=== PATIENT | female | born 1950 | race African-American/Black ===

== ENCOUNTER 2017-01-27 06:53 | Emergency (ER) | payer MEDICARE, OTHER ==
[~2017-01-27] VITALS: Ht 157.5 cm; Wt 90.0 kg
[~2017-01-27 06:53] MED LIST: ALBU05; DIGO125T82; FURO-152; WARF1TAB46
[2017-01-27] MEDS ORDERED: IPRATROPIUM/ALBUTEROL 0.5-3(2.5)MG/3ML NEB HHN ONE (07:45)
[2017-01-27] MEDS ORDERED: FUROSEMIDE 20MG/2ML VIAL IVP ONE (07:45)
[2017-01-27 08:12] LABS: BASOPHILS % 0.6 % (0.0-2.0); EOSINOPHILS % 2.2 % (0.0-5.0); LYMPHOCYTES % 9.2 % (20.0-50.0); MEAN CORPUSCULAR HEMOGLOBIN 29.5 pg (28.0-32.0); MEAN CORPUSCULAR HGB CONC 32.5 g/dL (31.0-37.0); MEAN CORPUSCULAR VOLUME 90.7 fL (81.0-99.0); MEAN PLATELET VOLUME 10.3 fl (7.4-10.4); MONOCYTES % 8.2 % (2.0-8.0); NEUTROPHILS % 79.8 % (40.0-76.0); PLATELET 152 x1000/uL (130-400); RED BLOOD CELL COUNT 4.74 mill/uL (4.2-5.4); RED CELL DISTRIBUTION WIDTH 14.9 % (11.6-14.6); WHITE BLOOD COUNT 9.3 x1000/uL (4.5-11.0)
[2017-01-27 08:18] LABS: PARTIAL THROMBOPLASTIN TIME 44.1 sec (24.0-34.0); PROTHROMBIN TIME 53.8 sec
[2017-01-27 08:22] LABS: ALANINE AMINOTRANSFERASE 20 IU/L (13-61); ALBUMIN 3.4 g/dL (3.4-5.0); ANION GAP 10; CALCIUM 8.8 mg/dL (8.5-10.1); CARBON DIOXIDE 31 mEq/L (21-32); CHLORIDE 102 mEq/L (98-107); INDEX HEMOLYSI 4 (1-3); INDEX ICTERIC 1 (1-4); INDEX LIPEMIC 1 (1-3); TROPONIN I < 0.02 ng/mL (0.00-0.04); UREA NITROGEN BLOOD 18 mg/dL (7-21); eGFR > 60 mL/min (>60)
[2017-01-27 08:30] LABS: NT PRO B-TYPE NATRIURETIC PEP 1209 pg/mL (5-125)
[2017-01-27 08:34] LABS: INR 5.1
[2017-01-27 08:36] LABS: DIGOXIN 1.1 ng/mL (0.9-2.0)
[2017-01-27] MEDS ORDERED: PREDNISOLONE 15 MG/5 ML ORAL SYRINGE PO ONE (08:45)
[2017-01-27 11:45] VITALS: BP 125/78
== END 2017-01-27 12:02 | disposition home or self-care (01) ==
LOC: ER 06:54
DX: J44.1 Chronic obstructive pulmonary disease with (acute) exacerbation (principal); R79.1 Abnormal coagulation profile; I11.0 Hypertensive heart disease with heart failure; I50.9 Heart failure, unspecified; J45.909 Unspecified asthma, uncomplicated; I48.91 Unspecified atrial fibrillation; Z79.01 Long term (current) use of anticoagulants; Z79.899 Other long term (current) drug therapy
CPT/HCPCS: 36415; 71010; 80053; 80162; 83880; 84484; 85025; 85610; 85730; 93005; 94640; 96374; 99285; J1940; J7620

== ENCOUNTER 2018-11-03 13:46 | Inpatient (IN) | payer MEDICARE ==
[~2018-11-03] VITALS: Ht 154.9 cm; Wt 113.9 kg
[~2018-11-03 13:46] MED LIST changes: -FURO-152; +FURO-152 PO
[2018-11-03] MEDS ORDERED: ALBUTEROL (0.083%) 2.5MG/3ML NEB HHN STA (14:52)
[2018-11-03] MEDS ORDERED: IPRATROPIUM BROMIDE (0.02%) 0.5MG/2.5ML NEB HHN STA (14:52)
[2018-11-03] MEDS ORDERED: METHYLPREDNISOLONE SOD SUCC 125 MG/2 ML VIAL IV STA (14:52)
[2018-11-03 15:17] LABS: BASOPHILS % 0.5 % (0.0-2.0); EOSINOPHILS % 0.7 % (0.0-5.0); HEMATOCRIT. 38.8 % (36.0-48.0); HEMOGLOBIN. 12.7 g/dL (12.0-16.0); LYMPHOCYTES % 7.3 % (20.0-50.0); MEAN CORPUSCULAR HEMOGLOBIN 30.3 pg (28.0-32.0); MEAN CORPUSCULAR VOLUME 92.5 fL (81.0-99.0); MEAN PLATELET VOLUME 9.8 fl (7.4-10.4); MONOCYTES % 7.1 % (2.0-8.0); NEUTROPHILS % 84.4 % (40.0-76.0); PLATELET 261 x1000/uL (130-400); RED BLOOD CELL COUNT 4.19 mill/uL (4.2-5.4); RED CELL DISTRIBUTION WIDTH 16.1 % (11.6-14.6)
[2018-11-03 15:22] LABS: CHLORIDE 105 mEq/L (98-107)
[2018-11-03] MEDS ORDERED: ALBUTEROL (0.5%) 2.5MG/0.5ML NEB HHN ONE (17:30)
[2018-11-04 10:15] VITALS: BP 141/95
[2018-11-04] MEDS ORDERED: WARF1TAB85 PO (11:45)
[2018-11-04] MEDS ORDERED: WARF10TA44 PO (11:45)
[2018-11-04 12:00] VITALS: BP 120/80
[2018-11-04 12:46] LABS: BG BASE EXCESS 3.8 mmol/L (-2.0-2.0); BG CARBOXYHEMOGLOBIN 0.7 % (0.5-1.5); BG DEOXYHEMOGLOBIN 3.5 % (0.0-5.0); BG FRACTION INSPIRED OXYGEN 36; BG HCO3 ACT 28.7 mmol/L (22.0-26.0); BG METHEMOGLOBIN 0.3 % (0.0-1.5); BG OXYGEN SATURATION 96.5 % (92.0-98.5); BG OXYHEMOGLOBIN 95.5 % (94.0-97.0); BG PCO2 44.6 mmHg (35.0-45.0); BG PH 7.427 (7.350-7.450); BG SAMPLE SITE RIGHT BRACHIAL; BG TOTAL HEMOGLOBIN 12.5 g/dL (12.0-18.0); BG VENT MODE NASAL CANNULA
[2018-11-04] MEDS: PREDNISONE 20MG TABLET PO SCH (12:57)
[2018-11-04] MEDS: IPRATROPIUM/ALBUTEROL 0.5-3(2.5)MG/3ML NEB HHN SCH ×2 (13:37→20:55)
[2018-11-04 16:00] VITALS: BP 110/71
[2018-11-04 16:23] LABS: HEMATOCRIT. 37.8 % (36.0-48.0); HEMOGLOBIN. 12.2 g/dL (12.0-16.0); MEAN CORPUSCULAR HEMOGLOBIN 29.8 pg (28.0-32.0); MEAN CORPUSCULAR VOLUME 92.5 fL (81.0-99.0); MEAN PLATELET VOLUME 9.4 fl (7.4-10.4); PLATELET 268 x1000/uL (130-400); RED BLOOD CELL COUNT 4.09 mill/uL (4.2-5.4); RED CELL DISTRIBUTION WIDTH 16.4 % (11.6-14.6)
[2018-11-04 16:32] LABS: PROTHROMBIN TIME 40.1 sec (9.1-11.1)
[2018-11-04 16:37] LABS: CHLORIDE 106 mEq/L (98-107)
[2018-11-04] MEDS: LEVOFLOXACIN 500MG TABLET PO SCH (16:59)
[2018-11-04] MEDS ORDERED: FUROSEMIDE 20MG/2ML VIAL IVP SCH (17:00)
[2018-11-04 17:03] LABS: PLATELET ESTIMATE NORMAL
[2018-11-04] MEDS ORDERED: DILT60TA35 PO (17:10)
[2018-11-04] MEDS ORDERED: CITA10TA16 MT (17:10)
[2018-11-04] MEDS ORDERED: FERR325T6 MT (17:10)
[2018-11-04] MEDS ORDERED: METO-539 MT (17:10)
[2018-11-04] MEDS ORDERED: MONT10TA21 MT (17:20)
[2018-11-04] MEDS ORDERED: OMEP20CA10 MT (17:20)
[2018-11-04] MEDS ORDERED: SOTA80TA MT (17:20)
[2018-11-04] MEDS ORDERED: FLUT1DIS6 INH (17:20)
[2018-11-04] MEDS ORDERED: POTA20TA82 MT (17:20)
[2018-11-04 17:29] LABS: INR 4.1
[2018-11-04] MEDS ORDERED: FURO-151 PO (17:42)
[2018-11-04] MEDS: POTASSIUM CHLORIDE 20MEQ TABLET SR PO SCH (18:41)
[2018-11-04] MEDS: MONTELUKAST SODIUM 10MG TABLET PO SCH (18:41)
[2018-11-04] MEDS: CITALOPRAM HYDROBROMIDE 20MG TABLET PO SCH (18:42)
[2018-11-04] MEDS: OMEPRAZOLE 20MG CAPSULE EXTENDED RELEASE PO SCH (18:42)
[2018-11-04] MEDS: FUROSEMIDE 40MG/4ML VIAL IV SCH (18:42)
[2018-11-04 20:00] VITALS: BP 129/87
[2018-11-04] MEDS: SOTALOL HCL 80MG TABLET PO SCH (20:50)
[2018-11-04] MEDS: BUDESONIDE 0.5MG/2ML NEB HHN SCH (20:55)
[2018-11-05] VITALS: BP 134/88
[2018-11-05] MEDS: IPRATROPIUM/ALBUTEROL 0.5-3(2.5)MG/3ML NEB HHN SCH ×3 (00:17→14:29)
[2018-11-05 04:00] VITALS: BP 119/77
[2018-11-05] MEDS: OMEPRAZOLE 20MG CAPSULE EXTENDED RELEASE PO SCH (06:26)
[2018-11-05] MEDS: FUROSEMIDE 40MG/4ML VIAL IV SCH ×2 (06:26→16:55)
[2018-11-05 06:43] LABS: PROTHROMBIN TIME 40.8 sec (9.1-11.1)
[2018-11-05 07:01] LABS: CHLORIDE 104 mEq/L (98-107)
[2018-11-05 07:05] LABS: HEMATOCRIT. 36.6 % (36.0-48.0); HEMOGLOBIN. 11.8 g/dL (12.0-16.0); MEAN CORPUSCULAR HEMOGLOBIN 29.8 pg (28.0-32.0); MEAN CORPUSCULAR VOLUME 92.2 fL (81.0-99.0); MEAN PLATELET VOLUME 9.7 fl (7.4-10.4); PLATELET 261 x1000/uL (130-400); RED BLOOD CELL COUNT 3.97 mill/uL (4.2-5.4); RED CELL DISTRIBUTION WIDTH 16.3 % (11.6-14.6)
[2018-11-05 07:15] LABS: INR 4.2
[2018-11-05] MEDS: BUDESONIDE 0.5MG/2ML NEB HHN SCH (08:59)
[2018-11-05] MEDS ORDERED: DILTIAZEM HCL 180MG CAPSULE CD 24HR PO SCH ×2 (09:00)
[2018-11-05] MEDS: POTASSIUM CHLORIDE 20MEQ TABLET SR PO SCH ×2 (09:46→16:55)
[2018-11-05] MEDS: CITALOPRAM HYDROBROMIDE 20MG TABLET PO SCH (09:47)
[2018-11-05 09:48] LABS: PLATELET ESTIMATE NORMAL
[2018-11-05] MEDS: PREDNISONE 20MG TABLET PO SCH (09:48)
[2018-11-05] MEDS: SOTALOL HCL 80MG TABLET PO SCH (09:48)
[2018-11-05] MEDS: LEVOFLOXACIN 500MG TABLET PO SCH (11:13)
[2018-11-05 12:00] VITALS: BP 105/84
[2018-11-05 16:00] VITALS: BP 150/63
[2018-11-05] MEDS: MONTELUKAST SODIUM 10MG TABLET PO SCH (16:55)
[2018-11-05 17:15] VITALS: BP 150/63
== END 2018-11-05 18:45 | disposition home or self-care (01) | DRG 291 ==
LOC: ER 13:46 → 5WST 16:56 → EDBEDREQ 17:06 → ENRESERV 11-04 07:07
PROVIDERS: ADMIT Ophthalmology; ATTEND Ophthalmology
DX: I11.0 Hypertensive heart disease with heart failure (principal); J96.21 Acute and chronic respiratory failure with hypoxia; J44.1 Chronic obstructive pulmonary disease with (acute) exacerbation; I50.9 Heart failure, unspecified; G47.30 Sleep apnea, unspecified; M19.90 Unspecified osteoarthritis, unspecified site; I48.91 Unspecified atrial fibrillation; Z99.81 Dependence on supplemental oxygen
CPT/HCPCS: 36415; 36600; 71045; 80048; 82375; 82805; 83735; 83880; 84443; 84484; 93005; 94640; 94644; 96374; 99285; J1940; J2930; J7512; J7611; J7620; J7626

== ENCOUNTER 2019-08-17 19:54 | Inpatient (IN) | payer MEDICARE ==
[~2019-08-17] VITALS: Ht 154.9 cm; Wt 112.0 kg
[~2019-08-17 19:54] MED LIST changes: +CITA10TA16 MT; -DIGO125T82; +DILT60TA35 PO; +FERR325T6 MT; +FLUT1DIS6 INH; +FURO-151 PO; -FURO-152 PO; +METO-539 MT; +MONT10TA21 MT; +OMEP20CA5 MT; +POTA20TA82 MT; +SOTA80TA MT; +WARF10TA44 PO; -WARF1TAB46; +WARF1TAB85 PO
[2019-08-17] MEDS ORDERED: IPRATROPIUM BROMIDE (0.02%) 0.5MG/2.5ML NEB HHN STA (20:22)
[2019-08-17] MEDS ORDERED: ALBUTEROL (0.083%) 2.5MG/3ML NEB HHN STA (20:22)
[2019-08-17 21:00] LABS: BASOPHILS % 0.8 % (0.0-2.0); EOSINOPHILS % 1.6 % (0.0-5.0); HEMATOCRIT. 41.9 % (36.0-48.0); HEMOGLOBIN. 13.8 g/dL (12.0-16.0); LYMPHOCYTES % 12.8 % (20.0-50.0); MEAN CORPUSCULAR HEMOGLOBIN 30.3 pg (28.0-32.0); MEAN CORPUSCULAR VOLUME 92.1 fL (81.0-99.0); NEUTROPHILS % 77.8 % (40.0-76.0); PLATELET 254 x1000/uL (130-400); RED BLOOD CELL COUNT 4.55 mill/uL (4.2-5.4); RED CELL DISTRIBUTION WIDTH 16.5 % (11.6-14.6)
[2019-08-17] MEDS ORDERED: FUROSEMIDE 40MG/4ML VIAL IVP ONE (21:00)
[2019-08-17] MEDS ORDERED: OXYMETAZOLINE HCL NASAL SPRAY 15ML RIGHTNSTRL SCH (21:00)
[2019-08-17 21:08] LABS: CHLORIDE 106 mEq/L (98-107)
[2019-08-17 21:09] LABS: INR 1.2; PROTHROMBIN TIME 12.5 sec (9.6-11.0)
[2019-08-17 22:24] LABS: CLARITY URINE CLEAR (CLEAR); COLOR URINE YELLOW (YELLOW); KETONES URINE NEGATIVE (NEGATIVE); LEUKOCYTE ESTERASE URINE NEGATIVE (NEGATIVE); NITRITE URINE NEGATIVE (NEGATIVE); OCCULT BLOOD URINE NEGATIVE (NEGATIVE); PROTEIN URINE NEGATIVE (NEGATIVE); SPECIFIC GRAVITY URINE 1.007 (1.005-1.030)
[2019-08-17] MEDS ORDERED: IPRATROPIUM/ALBUTEROL 0.5-3(2.5)MG/3ML NEB HHN PRN (22:45)
[2019-08-18] MEDS ORDERED: DILTIAZEM HCL 60MG TABLET PO NR (02:00)
[2019-08-18 05:27] LABS: BASOPHILS % 0.6 % (0.0-2.0); EOSINOPHILS % 1.3 % (0.0-5.0); HEMATOCRIT. 39.2 % (36.0-48.0); HEMOGLOBIN. 12.7 g/dL (12.0-16.0); LYMPHOCYTES % 9.8 % (20.0-50.0); MEAN CORPUSCULAR VOLUME 92.9 fL (81.0-99.0); MEAN PLATELET VOLUME 8.8 fl (7.4-10.4); NEUTROPHILS % 80.3 % (40.0-76.0); PLATELET 232 x1000/uL (130-400); RED BLOOD CELL COUNT 4.22 mill/uL (4.2-5.4); RED CELL DISTRIBUTION WIDTH 16.2 % (11.6-14.6)
[2019-08-18 05:29] LABS: CHLORIDE 106 mEq/L (98-107)
[2019-08-18 10:00] VITALS: BP 146/91
[2019-08-18 11:00] VITALS: BP 146/91
[2019-08-18] MEDS: FUROSEMIDE 40MG/4ML VIAL IVP SCH ×2 (11:08→20:46)
[2019-08-18] MEDS: POTASSIUM CHLORIDE 20MEQ TABLET SR PO SCH ×2 (11:09→17:11)
[2019-08-18] MEDS ORDERED: FLUTICASONE/VILANTEROL 200-25 BLST.W.DEV ORI SCH (11:30)
[2019-08-18 12:00] VITALS: BP 119/81
[2019-08-18 16:00] VITALS: BP 106/55
[2019-08-18] MEDS: DILTIAZEM HCL 60MG TABLET PO SCH (17:12)
[2019-08-18 20:00] VITALS: BP 112/72
[2019-08-18] MEDS: FLECAINIDE 50MG TABLET PO SCH (20:46)
[2019-08-19] VITALS: BP 118/78
[2019-08-19 04:00] VITALS: BP 126/75
[2019-08-19 07:24] LABS: BASOPHILS % 0.8 % (0.0-2.0); EOSINOPHILS % 2.9 % (0.0-5.0); HEMATOCRIT. 38.2 % (36.0-48.0); HEMOGLOBIN. 12.2 g/dL (12.0-16.0); LYMPHOCYTES % 7.8 % (20.0-50.0); MEAN CORPUSCULAR HEMOGLOBIN 29.8 pg (28.0-32.0); MEAN CORPUSCULAR VOLUME 93.4 fL (81.0-99.0); MEAN PLATELET VOLUME 9.2 fl (7.4-10.4); NEUTROPHILS % 79.5 % (40.0-76.0); PLATELET 224 x1000/uL (130-400); RED BLOOD CELL COUNT 4.09 mill/uL (4.2-5.4)
[2019-08-19 07:50] LABS: CHLORIDE 107 mEq/L (98-107)
[2019-08-19 08:00] VITALS: BP 125/76
[2019-08-19] MEDS: FLECAINIDE 50MG TABLET PO SCH ×2 (08:47→21:27)
[2019-08-19] MEDS: POTASSIUM CHLORIDE 20MEQ TABLET SR PO SCH ×2 (08:47→17:26)
[2019-08-19] MEDS: FUROSEMIDE 40MG/4ML VIAL IVP SCH (08:47)
[2019-08-19] MEDS: DILTIAZEM HCL 60MG TABLET PO SCH ×2 (08:48→21:27)
[2019-08-19] MEDS ORDERED: APIXABAN 5 MG TABLET PO SCH (09:00)
[2019-08-19] MEDS: FUROSEMIDE 40MG TABLET PO SCH ×2 (09:45→17:26)
[2019-08-19 12:00] VITALS: BP 103/73
[2019-08-19 16:00] VITALS: BP 106/67
[2019-08-19 20:05] VITALS: BP 129/84
[2019-08-20] VITALS: BP 106/72
[2019-08-20 04:00] VITALS: BP 117/100
[2019-08-20] MEDS: FUROSEMIDE 40MG TABLET PO SCH ×2 (06:01→17:24)
[2019-08-20 07:00] LABS: BASOPHILS % 0.6 % (0.0-2.0); EOSINOPHILS % 2.9 % (0.0-5.0); HEMATOCRIT. 37.1 % (36.0-48.0); HEMOGLOBIN. 12.1 g/dL (12.0-16.0); MEAN CORPUSCULAR HEMOGLOBIN 30.3 pg (28.0-32.0); MEAN CORPUSCULAR VOLUME 92.7 fL (81.0-99.0); MEAN PLATELET VOLUME 9.2 fl (7.4-10.4); MONOCYTES % 9.7 % (2.0-8.0); NEUTROPHILS % 74.8 % (40.0-76.0); PLATELET 221 x1000/uL (130-400)
[2019-08-20 07:57] LABS: CHLORIDE 107 mEq/L (98-107)
[2019-08-20 08:00] VITALS: BP 129/90
[2019-08-20] MEDS: POTASSIUM CHLORIDE 20MEQ TABLET SR PO SCH ×2 (08:42→17:24)
[2019-08-20] MEDS: DILTIAZEM HCL 60MG TABLET PO SCH (08:43)
[2019-08-20] MEDS: FLECAINIDE 50MG TABLET PO SCH ×2 (08:43→20:41)
[2019-08-20 12:00] VITALS: BP 92/66
[2019-08-20] MEDS: DILTIAZEM HCL 120MG CAPSULE CD 24HR PO SCH (12:41)
[2019-08-20 16:00] VITALS: BP 101/68
[2019-08-20] MEDS: APIXABAN 5 MG TABLET PO SCH (17:24)
[2019-08-20] MEDS ORDERED: IOHEXOL-350 100 ML BOTTLE ONE (18:00)
[2019-08-20 20:00] VITALS: BP 107/68
[2019-08-21] VITALS: BP 114/73
[2019-08-21 04:00] VITALS: BP 118/70
[2019-08-21] MEDS: FUROSEMIDE 40MG TABLET PO SCH (06:32)
[2019-08-21 07:53] LABS: BASOPHILS % 0.7 % (0.0-2.0); EOSINOPHILS % 3.4 % (0.0-5.0); HEMATOCRIT. 38.3 % (36.0-48.0); HEMOGLOBIN. 12.7 g/dL (12.0-16.0); LYMPHOCYTES % 13.7 % (20.0-50.0); MEAN CORPUSCULAR HEMOGLOBIN 30.6 pg (28.0-32.0); MEAN CORPUSCULAR VOLUME 92.6 fL (81.0-99.0); MEAN PLATELET VOLUME 9.2 fl (7.4-10.4); MONOCYTES % 9.3 % (2.0-8.0); NEUTROPHILS % 72.9 % (40.0-76.0); PLATELET 231 x1000/uL (130-400); RED BLOOD CELL COUNT 4.14 mill/uL (4.2-5.4); RED CELL DISTRIBUTION WIDTH 15.9 % (11.6-14.6)
[2019-08-21 08:00] VITALS: BP 121/79
[2019-08-21] MEDS: FLECAINIDE 50MG TABLET PO SCH (08:23)
[2019-08-21] MEDS: DILTIAZEM HCL 120MG CAPSULE CD 24HR PO SCH (08:23)
[2019-08-21] MEDS: POTASSIUM CHLORIDE 20MEQ TABLET SR PO SCH (08:23)
[2019-08-21] MEDS: APIXABAN 5 MG TABLET PO SCH (08:23)
[2019-08-21 08:55] LABS: CHLORIDE 104 mEq/L (98-107)
[2019-08-21 12:00] VITALS: BP 118/52
[2019-08-21] MEDS ORDERED: FUROSEMIDE 40MG TABLET PO SCH (17:15)
[2019-08-22] MEDS ORDERED: POTASSIUM CHLORIDE 20MEQ TABLET SR PO SCH (09:00)
== END 2019-08-21 16:33 | disposition home or self-care (01) | DRG 291 ==
LOC: ER 21:15 → 5WST 21:17 → EDBEDREQTM 21:36 → EDBEDREQ 21:36 → ENRESERV 08-18 10:12
PROVIDERS: ADMIT Internal Medicine Critical Care Medicine; ATTEND Internal Medicine Critical Care Medicine
DX: I11.0 Hypertensive heart disease with heart failure (principal); I50.31 Acute diastolic (congestive) heart failure; J96.00 Acute respiratory failure, unspecified whether with hypoxia or hypercapnia; J44.1 Chronic obstructive pulmonary disease with (acute) exacerbation; J81.1 Chronic pulmonary edema; I44.0 Atrioventricular block, first degree; I27.20 Pulmonary hypertension, unspecified; I48.0 Paroxysmal atrial fibrillation; Z79.01 Long term (current) use of anticoagulants; Z99.81 Dependence on supplemental oxygen; Z82.49 Family history of ischemic heart disease and other diseases of the circulatory system; Z79.899 Other long term (current) drug therapy
CPT/HCPCS: 36415; 71045; 71275; 80048; 81003; 83605; 83735; 83880; 84484; 93005; 93306; 94640; 96374; 99285; J1940; J7611; Q9967